=== PATIENT | male | born 1945 | race Hispanic/Latino ===

== ENCOUNTER 2016-05-25 16:34 | Outpatient (CLI) | payer MEDICARE ==
[2016-05-25] MEDS ORDERED: NACL ONE (17:11)
--- NOTE | 2016-05-25 19:55 | Cat Scan Report ---
FINAL REPORT PROCEDURE: CT CHEST W CON TECHNIQUE: Computerized axial tomography of the chest was performed without contrast material. This study is performed without intravenous contrast and the sensitivity for pathology, including neoplasms, adenopathy, abscess, pulmonary embolism and aortic dissection, is reduced. HISTORY: ABNORMAL CHEST XRAY COMPARISON: CT chest 05/19/2012 TECHNICAL QUALITY: Satisfactory. FINDINGS: Heart and pericardium: No pericardial effusion or thickening. Thoracic aorta: Normal. Pulmonary vasculature: Normal. Lymph nodes: No enlarged thoracic lymph nodes. Lungs: Normal. Pleural space: No effusion, thickening, or pneumothorax. Musculoskeletal structures: Multilevel thoracic spine degenerative disc changes. Upper abdominal structures: There is irregular contour of the spleen, which is not fully imaged. The upper imaged portions of the spleen however appear similar to that seen on the prior study. IMPRESSION: No pulmonary infiltrate or focal lesion is seen..
== END 2016-05-25 16:35 | disposition home or self-care (01) ==
LOC: CT 16:34
PROVIDERS: ATTEND Internal Medicine
DX: M47.894 Other spondylosis, thoracic region (principal)
CPT/HCPCS: 71260; Q9967

== ENCOUNTER 2016-12-24 18:11 | Emergency (ER) | payer MEDICARE ==
[2016-12-24 19:25] LABS: Basophils % (Auto) 0.5 % (0.0-1.8); Hematocrit 39.7 % (35.5-45.6); Hemoglobin 13.7 gm/dl (11.8-15.2); Mean Corpuscular HGB Conc 35 % (32-34); Mean Corpuscular Hemoglobin 31 pg (28-32); Mean Corpuscular Volume 89 fl (84-94); Platelet Count 195 K/mm3 (140-440); Red Blood Count 4.47 M/mm3 (3.65-5.03); Red Cell Distribution Width 13.1 % (13.2-15.2); White Blood Count 8.9 K/mm3 (4.5-11.0)
[2016-12-24 19:48] LABS: Alanine Aminotransferase 13 units/L (7-56); Albumin 3.9 g/dL (3.9-5); Albumin/Globulin Ratio 1.4 %; Alkaline Phosphatase 118 units/L (35-129); Anion Gap 16 mmol/L; BUN/Creatinine Ratio 28.75; Blood Urea Nitrogen 23 mg/dL (9-20); Calcium 9.3 mg/dL (8.4-10.2); Carbon Dioxide 25 mmol/L (22-30); Chloride 106.7 mmol/L (98-107); Glucose 106 mg/dL (75-100); Potassium 4.1 mmol/L (3.6-5.0); Sodium 144 mmol/L (137-145); Total Protein 6.7 g/dL (6.3-8.2)
[2016-12-24 20:13] LABS: Bacteria,Urine 1+ /HPF (Negative); Bilirubin,Urine NEG (Negative); Blood,Urine LG (Negative); Ketones,Urine NEG (Negative); Leukocyte Esterase,Urine LG (Negative); Mucus,Urine FEW /HPF; Nitrite,Urine NEG (Negative); Urobilinogen,Urine < 2.0 mg/dL (<2.0)
[2016-12-24 20:14] LABS: RBC,Urine > 182.0 /HPF (0.0-6.0)
[2016-12-24] MEDS ORDERED: ROCEPHIN/NS 2 GM/100 ML 2 GM/100 ML BAG IV SCH (21:00)
--- NOTE | 2016-12-24 21:12 | Emergency Department Report ---
HPI - General Chief Complaint: Abdominal Pain Time Seen by Provider: 12/24/16 20:30 - HPI HPI: Patient has a Stevens and has been noticing changes of his urine color, noticed urine has been darker than usual, has a strong smell, and he is having penile pain, at insertion site of stevens. patient denies any fever, chills, night sweats. ED Past Medical Hx - Past Medical History Hx Hypertension: Yes - Surgical History Additional Surgical History: Prostate biopsy - Social History Smoking Status: Smoker, Current Status Unknown - Medications Home Medications: Home Medications Medication Instructions Recorded Confirmed Last Taken Type Nitrofurantoin Smith/M-Cryst 100 mg PO Q12HR #20 capsule 12/24/16 Unknown Rx [Macrobid CAP] Nystatin Cream [Mycostatin Cream] 1 applic TP BID #1 tube 12/24/16 Unknown Rx ED Review of Systems ROS: Stated complaint: ABD PAIN Other details as noted in HPI Comment: All other systems reviewed and negative Constitutional: no symptoms reported Genitourinary: urgency, dysuria, frequency Physical Exam - Physical Exam Vital Signs: Vital Signs 12/24/16 12/24/16 18:27 20:16 Temperature 98.3 F 98.3 F Pulse Rate 85 81 Respiratory 16 Rate Blood Pressure 161/76 164/76 O2 Sat by Pulse 98 99 Oximetry Physical Exam: Physical Exam: - General Limitations: No Limitations General appearance: alert, in no apparent distress, obese - Head Head exam: Present: atraumatic, normocephalic - Eye Eye exam: Present: normal appearance - ENT ENT exam: Present: mucous membranes moist - Neck Neck exam: Present: normal inspection - Respiratory Respiratory exam: Present: normal lung sounds bilaterally. Absent: respiratory distress - Cardiovascular Cardiovascular Exam: Present: normal rhythm, tachycardia. Absent: systolic murmur, diastolic murmur, rubs, gallop : Penile redness worse at the tip - GI/Abdominal GI/Abdominal exam: Present: soft, normal bowel sounds - Extremities Exam Extremities exam: Present: normal inspection - Back Exam Back exam: Present: normal inspection - Neurological Exam Neurological exam: Present: alert, oriented X3 - Psychiatric Psychiatric exam: normal affect and mood - Skin Skin exam: Present: warm, dry, intact, normal color. Absent: rash ED Course Vital Signs 12/24/16 12/24/16 18:27 20:16 Temperature 98.3 F 98.3 F Pulse Rate 85 81 Respiratory 16 Rate Blood Pressure 161/76 164/76 O2 Sat by Pulse 98 99 Oximetry ED Medical Decision Making - Lab Data Result diagrams: 12/24/16 19:15 12/24/16 19:13 Critical care attestation.: If time is entered above; I have spent that time in minutes in the direct care of this critically ill patient, excluding procedure time. ED Disposition Clinical Impression: Belinda infection UTI (urinary tract infection) Qualifiers: Urinary tract infection type: acute cystitis Hematuria presence: with hematuria Qualified Code(s): N30.01 - Acute cystitis with hematuria Disposition: - TO HOME OR SELFCARE Is pt being admited?: No Does the pt Need Aspirin: No Condition: Stable Instructions: Urinary Tract Infection in Men (ED), Stevens Catheter Placement and Care (ED) Prescriptions: Nitrofurantoin Smith/M-Cryst [Macrobid CAP] 100 mg PO Q12HR #20 capsule Nystatin Cream [Mycostatin Cream] 1 applic TP BID #1 tube Referrals: PRIMARY CARE, [Primary Care Provider] - 3-5 Days
[2016-12-24 21:51] VITALS: BP 173/84
== END 2016-12-24 21:55 | disposition home or self-care (01) ==
LOC: ED 18:11
DX: N30.01 Acute cystitis with hematuria (principal); I10 Essential (primary) hypertension
CPT/HCPCS: 36415; 80053; 81001; 85025; 96365; 99284; J0696

== ENCOUNTER 2017-09-27 11:07 | Day surgery (SDC) | payer MEDICARE ==
[2017-09-27 12:08] LABS: Basophils # (Auto) 0.1 K/mm3 (0.0-0.1); Basophils % (Auto) 0.7 % (0.0-1.8); Eosinophils % (Auto) 9.4 % (0.0-4.3); Hemoglobin 13.3 gm/dl (11.8-15.2); Lymphocytes # (Auto) 1.8 K/mm3 (1.2-5.4); Lymphocytes % (Auto) 16.6 % (13.4-35.0); Mean Corpuscular HGB Conc 33 % (32-34); Mean Corpuscular Hemoglobin 29 pg (28-32); Mean Corpuscular Volume 86 fl (84-94); Monocytes # (Auto) 0.8 K/mm3 (0.0-0.8); Monocytes % (Auto) 7.6 % (0.0-7.3); Platelet Count 291 K/mm3 (140-440); Red Blood Count 4.64 M/mm3 (3.65-5.03); Red Cell Distribution Width 14.1 % (13.2-15.2)
[2017-09-27 12:19] LABS: INR 0.95 (0.87-1.13)
[2017-09-27 12:20] LABS: Partial Thromboplastin Time 30.8 Sec. (24.2-36.6)
--- NOTE | 2017-09-27 14:42 | Ultrasound Report ---
ULTRASOUND THORACENTESIS History: Left pleural effusion. Description of procedure: Informed consent was obtained. Sterile technique was utilized. 1% lidocaine for skin anesthesia. Using ultrasound guidance, a 5 Maltese centesis needle was advanced into the left pleural fluid collection. There was spontaneous return of bloody fluid. 600 cc of fluid was aspirated. 120 cc of fluid was sent to lab for analysis. Impression: Successful ultrasound-guided left thoracentesis. 600 cc of bloody fluid was aspirated.
--- NOTE | 2017-09-27 15:06 | Short Stay Summary ---
Short Stay Documentation Date of service: 09/27/17 - History Principal diagnosis: left pleural effusion H&P: obtained from office - Allergies and Medications Current Medications: Allergies No Known Allergies Allergy (Unverified 06/13/17 14:48) Home Medications Medication Instructions Recorded Confirmed Last Taken Type Aspirin [Aspirin BABY CHEW TAB] 81 mg PO QDAY 06/13/17 09/27/17 09/25/17 History Atorvastatin Calcium 20 mg PO DAILY 09/27/17 09/27/17 09/26/17 History amLODIPine [Norvasc] 5 mg PO DAILY 09/27/17 09/27/17 09/26/17 History clonazePAM 0.5 mg PO QHS PRN 09/27/17 09/27/17 09/26/17 History traMADol [Ultram] 50 mg PO Q6HR PRN 09/27/17 09/27/17 09/26/17 History - Physical exam General appearance: no acute distress Lungs: Other (descreased sounds on left side) - Brief post op/procedure progress note Date of procedure: 09/27/17 Pre-op diagnosis: left pleural effusion Post-op diagnosis: other (left hemothorax) Procedure: US thoracentesis Anesthesia: local Surgeon: EDGAR LIVINGSTON Estimated blood loss: none Pathology: list (120cc) Specimen disposition: to lab Condition: stable - Disposition Condition at discharge: Good Disposition: DC-01 TO HOME OR SELFCARE Short Stay Discharge Plan Follow up with: REBECCA REESE MD [Primary Care Provider] - 7 Days
[2017-09-27 16:23] VITALS: BP 156/64
--- NOTE | 2017-09-27 16:58 | XRay Report ---
FINAL REPORT EXAM: XR CHEST 1V AP COMPARISON: Chest radiograph performed on 06/13/2017 TECHNIQUE: Single frontal view of the chest FINDINGS: The cardiomediastinal silhouette is normal in appearance. There is mild blunting of the left costophrenic angle, which is new since the previous study. The remainder of the lungs are clear. No pneumothorax. No acute bony or soft tissue abnormality. IMPRESSION: Mild blunting of the left costophrenic angle, that likely represents a small pleural effusion. No pneumothorax. HISTORY: post thoracentesis
[2017-09-27 17:15] LABS: Total Cells Counted 100 /mm3
[2017-09-30 07:16] LABS: Amylase,Body Fluid 36; LDH,Body Fluid 1303; Total Protein,Body Fluid 4.9 (15.0-45.0)
== END 2017-09-27 17:15 | disposition home or self-care (01) ==
LOC: CATHLABREC 11:07 → EDSTATUS 12:00 → CATHLABREC 17:15
PROVIDERS: ATTEND Internal Medicine
DX: J90 Pleural effusion, not elsewhere classified (principal); J94.2 Hemothorax; I10 Essential (primary) hypertension; Z79.82 Long term (current) use of aspirin; Z79.899 Other long term (current) drug therapy; Z79.01 Long term (current) use of anticoagulants
CPT/HCPCS: 32555; 36415; 71045; 82150; 82947; 83605; 84160; 85025; 85610; 85730; 87102; 87116; 88112; 88305; 89051

== ENCOUNTER 2017-12-25 11:20 | Emergency (ER) | payer MEDICARE ==
[2017-12-25 11:28] VITALS: BP 177/92
[2017-12-25] MEDS ORDERED: DECADRON IM ONE (13:46)
[2017-12-25] MEDS ORDERED: ATROVENT IH ONE (13:46)
[2017-12-25] MEDS ORDERED: PROVENTIL IH ONE (13:46)
--- NOTE | 2017-12-25 13:46 | Emergency Department Report ---
<KATI NEWBY - Last Filed: 12/25/17 13:46> - General Chief Complaint: Upper Respiratory Infection Stated Complaint: COLD SYMPTONS Time Seen by Provider: 12/25/17 13:29 Source: patient, family Mode of arrival: Ambulatory Limitations: No Limitations - Related Data Home Medications Medication Instructions Recorded Confirmed Last Taken Aspirin [Aspirin BABY CHEW TAB] 81 mg PO QDAY 06/13/17 09/27/17 09/25/17 Atorvastatin Calcium 20 mg PO DAILY 09/27/17 09/27/17 09/26/17 amLODIPine [Norvasc] 5 mg PO DAILY 09/27/17 09/27/17 09/26/17 clonazePAM 0.5 mg PO QHS PRN 09/27/17 09/27/17 09/26/17 traMADol [Ultram] 50 mg PO Q6HR PRN 09/27/17 09/27/17 09/26/17 Previous Rx's Medication Instructions Recorded Last Taken Type ALBUTEROL Inhaler (OR & NICU) 2 puff IH QID PRN #1 inhalation 12/25/17 Unknown Rx [ProAir HFA Inhaler] Azithromycin [Zithromax] 250 mg PO DAILY #6 tablet 12/25/17 Unknown Rx predniSONE [Deltasone] 20 mg PO QDAY #5 tab 12/25/17 Unknown Rx Allergies Allergy/AdvReac Type Severity Reaction Status Date / Time No Known Allergies Allergy Verified 12/25/17 11:24 ED Review of Systems ROS: Stated complaint: COLD SYMPTONS Other details as noted in HPI ED Past Medical Hx - Past Medical History Hx Hypertension: Yes Hx CVA: Yes Hx Congestive Heart Failure: No Hx Diabetes: No Hx GERD: Yes Hx Arthritis: Yes Hx Asthma: No Hx COPD: No Hx Dementia: Yes Hx HIV: No Additional medical history: high cholesterol - Surgical History Hx Cholecystectomy: Yes Additional Surgical History: Prostate biopsy - Social History Smoking Status: Never Smoker Substance Use Type: None - Medications Home Medications: Home Medications Medication Instructions Recorded Confirmed Last Taken Type Aspirin [Aspirin BABY CHEW TAB] 81 mg PO QDAY 06/13/17 09/27/17 09/25/17 History Atorvastatin Calcium 20 mg PO DAILY 09/27/17 09/27/17 09/26/17 History amLODIPine [Norvasc] 5 mg PO DAILY 09/27/17 09/27/17 09/26/17 History clonazePAM 0.5 mg PO QHS PRN 09/27/17 09/27/17 09/26/17 History traMADol [Ultram] 50 mg PO Q6HR PRN 09/27/17 09/27/17 09/26/17 History ALBUTEROL Inhaler (OR & NICU) 2 puff IH QID PRN #1 inhalation 12/25/17 Unknown Rx [ProAir HFA Inhaler] Azithromycin [Zithromax] 250 mg PO DAILY #6 tablet 12/25/17 Unknown Rx predniSONE [Deltasone] 20 mg PO QDAY #5 tab 12/25/17 Unknown Rx ED Physical Exam - General Limitations: No Limitations ED Course Vital Signs 12/25/17 11:25 Temperature 99.1 F Pulse Rate 101 H Respiratory 20 Rate Blood Pressure 177/92 O2 Sat by Pulse 96 Oximetry Critical care attestation.: If time is entered above; I have spent that time in minutes in the direct care of this critically ill patient, excluding procedure time. ED Disposition Clinical Impression: Acute bronchitis Qualifiers: Bronchitis organism: unspecified organism Qualified Code(s): J20.9 - Acute bronchitis, unspecified Disposition: DC- TO HOME OR SELFCARE Condition: Stable Instructions: Acute Bronchitis (ED) Referrals: PRIMARY CARE, [Primary Care Provider] - 3-5 Days <FRED BURTON - Last Filed: 12/25/17 15:05> - History of Present Illness Initial Comments: Patient is 72-year-old male who is presenting with cough cold congestion for approximately week. Cough is dry. Family members state that he had pneumonia last unit where he may have pneumonia. Patient's had no fevers chills nausea vomiting diarrhea. Severity scale (0 -10): 5 Worsens With: nothing ED Review of Systems Comment: All other systems reviewed and negative ED Physical Exam - General General appearance: alert, in no apparent distress - Head Head exam: Present: atraumatic, normocephalic - Eye Eye exam: Present: normal appearance - ENT ENT exam: Present: mucous membranes moist - Neck Neck exam: Present: normal inspection - Respiratory Respiratory exam: Present: normal lung sounds bilaterally. Absent: respiratory distress, wheezes, rales, rhonchi - Cardiovascular Cardiovascular Exam: Present: regular rate, normal rhythm. Absent: systolic murmur, diastolic murmur, rubs, gallop - GI/Abdominal GI/Abdominal exam: Present: soft, normal bowel sounds - Rectal Rectal exam: Present: deferred - Extremities Exam Extremities exam: Present: normal inspection - Back Exam Back exam: Present: normal inspection - Neurological Exam Neurological exam: Present: alert, oriented X3 - Psychiatric Psychiatric exam: Present: normal affect, normal mood - Skin Skin exam: Present: warm, dry, intact, normal color. Absent: rash ED Medical Decision Making - Radiology Data Chest x-ray shows no acute process - Medical Decision Making She'll be started on antibiotics and meds for symptomatic relief will be discharged home. ED Disposition Is pt being admited?: No Does the pt Need Aspirin: No Time of Disposition: 15:05
--- NOTE | 2017-12-25 13:47 | Emergency Department Report ---
Blank Doc - Documentation Documentation: Patient is 72-year-old male who is presenting with cortical congestion for 24 hours. Patient's states that he had pneumonia last year she was concerned he may have pneumonia again. Patient has some mild shortness of breath. Cough is dry and nonproductive. Patient denies any fevers chills nausea vomiting this time. On focused physical exam patient has clear lungs with does have a wet cough. Chest x-ray revealing the patient be reassessed
--- NOTE | 2017-12-25 14:29 | XRay Report ---
FINAL REPORT EXAM: XR CHEST ROUTINE 2V HISTORY: cough COMPARISON: Chest radiograph performed on 09/27/2017 TECHNIQUE: Frontal and lateral views of the chest. FINDINGS: The cardiomediastinal silhouette is normal in appearance. The lungs are clear without focal consolidation. There is no pleural effusion or pneumothorax. There is no acute soft tissue or osseous abnormality. IMPRESSION: No acute cardiopulmonary disease.
== END 2017-12-25 15:40 | disposition home or self-care (01) ==
LOC: ED 11:20
DX: J20.9 Acute bronchitis, unspecified (principal); Z79.82 Long term (current) use of aspirin; I10 Essential (primary) hypertension; K21.9 Gastro-esophageal reflux disease without esophagitis; M19.90 Unspecified osteoarthritis, unspecified site; E78.00 Pure hypercholesterolemia, unspecified; Z90.49 Acquired absence of other specified parts of digestive tract
CPT/HCPCS: 71046; 94640; 96372; 99284; J1100

== ENCOUNTER 2018-04-30 19:02 | Inpatient (IN) | payer MEDICARE ==
[2018-04-30] MEDS ORDERED: CATAPRES PO ONE (20:30)
[2018-04-30] MEDS ORDERED: CATAPRES ONE (20:33)
[2018-04-30 20:43] LABS: Basophils # (Auto) 0.1 K/mm3 (0.0-0.1); Eosinophils # (Auto) 0.1 K/mm3 (0.0-0.4); Eosinophils % (Auto) 0.8 % (0.0-4.3); Hematocrit 44.1 % (35.5-45.6); Hemoglobin 15.2 gm/dl (11.8-15.2); Lymphocytes # (Auto) 0.6 K/mm3 (1.2-5.4); Lymphocytes % (Auto) 4.1 % (13.4-35.0); Mean Corpuscular HGB Conc 35 % (32-34); Mean Corpuscular Volume 89 fl (84-94); Monocytes # (Auto) 1.1 K/mm3 (0.0-0.8); Monocytes % (Auto) 7.9 % (0.0-7.3); Platelet Count 206 K/mm3 (140-440); Red Blood Count 4.98 M/mm3 (3.65-5.03); Red Cell Distribution Width 13.7 % (13.2-15.2)
[2018-04-30 20:54] LABS: BUN/Creatinine Ratio 16; Blood Urea Nitrogen 14 mg/dL (9-20); Calcium 9.3 mg/dL (8.4-10.2); Hemolysis Index 4
--- NOTE | 2018-04-30 21:12 | XRay Report ---
FINAL REPORT PROCEDURE: XR CHEST ROUTINE 2V TECHNIQUE: PA and lateral chest radiographs were obtained. CPT 62551 HISTORY: Shortness of breath COMPARISON: 12/25/2017 FINDINGS: Patient is rotated to the left Heart: Mild cardiomegaly is noted. Mediastinum/Vessels: Normal. Lungs/Pleural space: Normal. Bony thorax: No acute osseous abnormality. Other: IMPRESSION: Mild cardiomegaly No acute pulmonary process.
[2018-04-30] MEDS ORDERED: ATROVENT IH ONE (21:32)
[2018-04-30] MEDS ORDERED: SOLU-Medrol IV ONE (21:32)
[2018-04-30] MEDS ORDERED: PROVENTIL IH ONE (21:32)
[2018-04-30] MEDS ORDERED: TESSALON PERLES PO ONE (21:32)
[2018-04-30] MEDS ORDERED: MAGNESIUM SULFATE 2GM/50ML 2 GM/50 ML BAG IV ONE (21:40)
--- NOTE | 2018-05-01 00:02 | Emergency Department Report ---
- General Chief Complaint: Upper Respiratory Infection Stated Complaint: FLU SYMPTOMS Time Seen by Provider: 04/30/18 21:20 Source: patient, family Mode of arrival: Ambulatory Limitations: Altered Mental Status, Physical Limitation - History of Present Illness Initial Comments: 72-year-old male with a past medical history of CVA without deficits, dementia, GERD, hypertension, and elevated cholesterol presents to the hospital with continued cough and shortness of breath since diagnosis infection 4 weeks ago. He was seen by his PMD 3 weeks ago was treated with Z-Wallace. Patient initially felt better after abx buit symptoms worsened again. Patient continues to have a cough that seems to be worse at night. He is also having continued intermittent wheezing with shortness of breath on exertion. Minimal relief with his albuterol inhaler. His niece takes care of him suspects that he has had a fever because he feels warm but there is no documented elevated temperature. Patient complains of pain to his ribs secondary to coughing. Patient did receive his flu shot. PMD: Dr. Guallpa - Related Data Home Medications Medication Instructions Recorded Confirmed Last Taken Aspirin [Aspirin BABY CHEW TAB] 81 mg PO QDAY 06/13/17 09/27/17 09/25/17 Atorvastatin Calcium 20 mg PO DAILY 09/27/17 09/27/17 09/26/17 amLODIPine [Norvasc] 5 mg PO DAILY 09/27/17 09/27/17 09/26/17 clonazePAM 0.5 mg PO QHS PRN 09/27/17 09/27/17 09/26/17 traMADol [Ultram] 50 mg PO Q6HR PRN 09/27/17 09/27/17 09/26/17 Previous Rx's Medication Instructions Recorded Last Taken Type ALBUTEROL Inhaler (OR & NICU) 2 puff IH QID PRN #1 inhalation 12/25/17 Unknown Rx [ProAir HFA Inhaler] Azithromycin [Zithromax] 250 mg PO DAILY #6 tablet 12/25/17 Unknown Rx predniSONE [Deltasone] 20 mg PO QDAY #5 tab 12/25/17 Unknown Rx Allergies Allergy/AdvReac Type Severity Reaction Status Date / Time No Known Allergies Allergy Verified 12/25/17 11:24 ED Review of Systems ROS: Stated complaint: FLU SYMPTOMS Other details as noted in HPI Comment: All other systems reviewed and negative ED Past Medical Hx - Past Medical History Hx Hypertension: Yes Hx CVA: Yes (2008 no deficits) Hx Congestive Heart Failure: No Hx Diabetes: No Hx GERD: Yes Hx Arthritis: Yes Hx Asthma: No Hx COPD: No Hx Dementia: Yes Hx HIV: No Additional medical history: high cholesterol - Surgical History Past Surgical History?: Yes Hx Cholecystectomy: Yes Additional Surgical History: Prostate biopsy - Social History Smoking Status: Former Smoker - Medications Home Medications: Home Medications Medication Instructions Recorded Confirmed Last Taken Type Aspirin [Aspirin BABY CHEW TAB] 81 mg PO QDAY 06/13/17 09/27/17 09/25/17 History Atorvastatin Calcium 20 mg PO DAILY 09/27/17 09/27/17 09/26/17 History amLODIPine [Norvasc] 5 mg PO DAILY 09/27/17 09/27/17 09/26/17 History clonazePAM 0.5 mg PO QHS PRN 09/27/17 09/27/17 09/26/17 History traMADol [Ultram] 50 mg PO Q6HR PRN 09/27/17 09/27/17 09/26/17 History ALBUTEROL Inhaler (OR & NICU) 2 puff IH QID PRN #1 inhalation 12/25/17 Unknown Rx [ProAir HFA Inhaler] Azithromycin [Zithromax] 250 mg PO DAILY #6 tablet 12/25/17 Unknown Rx predniSONE [Deltasone] 20 mg PO QDAY #5 tab 12/25/17 Unknown Rx ED Physical Exam - General Limitations: Altered Mental Status, Physical Limitation - Other Other exam information: General: No limitations, patient is alert in no acute distress Head exam: Atraumatic, normocephalic Eyes exam: Normal appearance ENT: Moist mucous membrane, normal oropharynx Neck exam: Normal inspection, full range of motion, no meningismus nontender Respiratory exam: Positive wheezing without accessory muscle use Cardiovascular: Mild tachycardia regular rhythm Abdomen: Soft, nondistended, and nontender, with normal bowel sounds, no rebound, or guarding Extremity: Full range of motion normal inspection no deformity Back: Normal Inspection, full range of motion, no tenderness Neurologic: Alert, oriented to self and place but not to year, cranial nerves intact, no motor or sensory deficit Psychiatric: normal affect, normal mood Skin: Warm, dry, intact ED Course Vital Signs 04/30/18 04/30/18 04/30/18 20:03 20:11 20:33 Temperature 99.4 F 99.4 F Pulse Rate 110 H 110 H 110 H Pulse Rate [ Anterior Bilateral Throughout] Respiratory 20 Rate Respiratory Rate [Anterior Bilateral Throughout] Blood Pressure 207/106 207/106 Blood Pressure 207/106 [Right] O2 Sat by Pulse 94 94 Oximetry 04/30/18 04/30/18 04/30/18 21:54 21:58 22:00 Temperature Pulse Rate 95 H 103 H Pulse Rate [ 95 H Anterior Bilateral Throughout] Respiratory 24 25 H Rate Respiratory 18 Rate [Anterior Bilateral Throughout] Blood Pressure 124/70 109/70 Blood Pressure [Right] O2 Sat by Pulse 95 96 Oximetry 04/30/18 04/30/18 04/30/18 22:30 23:00 23:15 Temperature Pulse Rate 103 H 107 H Pulse Rate [ 93 H Anterior Bilateral Throughout] Respiratory 25 H 24 Rate Respiratory 18 Rate [Anterior Bilateral Throughout] Blood Pressure 111/72 129/60 Blood Pressure [Right] O2 Sat by Pulse 94 94 Oximetry 04/30/18 23:30 Temperature Pulse Rate 111 H Pulse Rate [ Anterior Bilateral Throughout] Respiratory 19 Rate Respiratory Rate [Anterior Bilateral Throughout] Blood Pressure 119/66 Blood Pressure [Right] O2 Sat by Pulse 94 Oximetry ED Medical Decision Making - Lab Data Result diagrams: 04/30/18 20:32 04/30/18 20:32 Lab Results 04/30/18 04/30/18 Range/Units 20:32 20:32 WBC 13.5 H (4.5-11.0) K/mm3 RBC 4.98 (3.65-5.03) M/mm3 Hgb 15.2 (11.8-15.2) gm/dl Hct 44.1 (35.5-45.6) % MCV 89 (84-94) fl MCH 31 (28-32) pg MCHC 35 H (32-34) % RDW 13.7 (13.2-15.2) % Plt Count 206 (140-440) K/mm3 Lymph % (Auto) 4.1 L (13.4-35.0) % Stafford % (Auto) 7.9 H (0.0-7.3) % Eos % (Auto) 0.8 (0.0-4.3) % Baso % (Auto) 1.0 (0.0-1.8) % Lymph # 0.6 L (1.2-5.4) K/mm3 Stafford # 1.1 H (0.0-0.8) K/mm3 Eos # 0.1 (0.0-0.4) K/mm3 Baso # 0.1 (0.0-0.1) K/mm3 Seg Neutrophils % 86.2 H (40.0-70.0) % Seg Neutrophils # 11.7 H (1.8-7.7) K/mm3 Sodium 136 L (137-145) mmol/L Potassium 4.1 (3.6-5.0) mmol/L Chloride 99.0 (98-107) mmol/L Carbon Dioxide 24 (22-30) mmol/L Anion Gap 17 mmol/L BUN 14 (9-20) mg/dL Creatinine 0.9 (0.8-1.5) mg/dL Estimated GFR > 60 ml/min BUN/Creatinine Ratio 16 % Glucose 115 H (75-100) mg/dL Calcium 9.3 (8.4-10.2) mg/dL - EKG Data -: EKG Interpreted by [facility] EKG shows normal: sinus rhythm, axis (qrs 15), QRS complexes (qrsd 123), ST-T waves (no stemui, lat st depression ) Rate: normal (99) - EKG Data When compared to previous EKG there are: no significant change (compared to 05/2017) - Radiology Data Radiology results: report reviewed FINAL REPORT PROCEDURE: XR CHEST ROUTINE 2V TECHNIQUE: PA and lateral chest radiographs were obtained. CPT 12085 HISTORY: Shortness of breath COMPARISON: 12/25/2017 FINDINGS: Patient is rotated to the left Heart: Mild cardiomegaly is noted. Mediastinum/Vessels: Normal. Lungs/Pleural space: Normal. Bony thorax: No acute osseous abnormality. Other: IMPRESSION: Mild cardiomegaly No acute pulmonary process. - Medical Decision Making Patient treated in the ED with continuous albuterol 10 mg, Atrovent 1 mg, 2 g of magnesium, and Solu-Medrol 125 mg with minimal improvement in his wheezing. Patient will be admitted to hospitalist service for further treatment. Elevated blood pressure improved after receiving clonidine 0 point - Differential Diagnosis pneumonia, COPD, hypertensive emergency, CHF Critical Care Time: No Critical care attestation.: If time is entered above; I have spent that time in minutes in the direct care of this critically ill patient, excluding procedure time. ED Disposition Clinical Impression: Acute bronchitis, Wheezing Disposition: OP ADMIT IP TO THIS HOSP Is pt being admited?: Yes Condition: Stable Time of Disposition: 00:01 (Dr Boyd/hosp)
[2018-05-01] MEDS ORDERED: SODIUM CHLORIDE FLUSH SYRINGE 10 ML IV PRN (00:13)
--- NOTE | 2018-05-01 00:17 | History and Physical Report ---
History of Present Illness Date of examination: 05/01/18 History of present illness: [age]-year-old man with a history of hypertension, hyperlipidemia, dementia, GERD, CVA was brought to the emergency room by family for evaluation for shortness of breath. He was diagnosed with bronchitis 4 weeks ago, treated with a Z-Wallace his symptoms improved temporarily. He continued to have shortness of breath, cough, no fever or chills Review of systems Constitutional: no weight loss, chills, fever Ears, eyes, nose, mouth and throat: no nasal congestion, no nasal discharge, no sinus pressure, no vision change, no red eye. Neck: No neck pain or rigidity. Cardiovascular: no palpitations, chest pain Respiratory: + cough, shortness of breath Gastrointestinal: no hematochezia, abdominal pain Genitourinary : no frequency , no hematuria Musculoskeletal: no joint swelling or muscle ache Integumentary: no rash, no pruritis Neurological: no parathesias, no focal weakness Endocrine: no cold or heat intolerance, no polyuria or polydipsia Hematologic/Lymphatic: no easy bruising, no easy bleeding, no gland swelling Allergic/Immunologic: no urticaria, no angioedema. PAST MEDICAL HISTORY: hypertension, hyperlipidemia, dementia, GERD, CVA PAST SURGICAL HISTORY: Cholecystectomy SOCIAL HISTORY: Denies alcohol, drugs, tobacco FAMILY HISTORY: Hypertension Medications and Allergies Allergies Allergy/AdvReac Type Severity Reaction Status Date / Time No Known Allergies Allergy Verified 12/25/17 11:24 Home Medications Medication Instructions Recorded Confirmed Last Taken Type Aspirin [Aspirin BABY CHEW TAB] 81 mg PO QDAY 06/13/17 09/27/17 09/25/17 History Atorvastatin Calcium 20 mg PO DAILY 09/27/17 09/27/17 09/26/17 History amLODIPine [Norvasc] 5 mg PO DAILY 09/27/17 09/27/17 09/26/17 History clonazePAM 0.5 mg PO QHS PRN 09/27/17 09/27/17 09/26/17 History traMADol [Ultram] 50 mg PO Q6HR PRN 09/27/17 09/27/17 09/26/17 History ALBUTEROL Inhaler (OR & NICU) 2 puff IH QID PRN #1 inhalation 12/25/17 Unknown Rx [ProAir HFA Inhaler] Azithromycin [Zithromax] 250 mg PO DAILY #6 tablet 12/25/17 Unknown Rx predniSONE [Deltasone] 20 mg PO QDAY #5 tab 12/25/17 Unknown Rx Exam - Physical Exam Narrative exam: General Apperance: The patient lying in bed, breathing comfortable HEENT: Normocephalic, atraumatic. Pupils equally round and reactive to light, EOMI, no sclericterus or JVD or thyromegaly or nodule. , no carotid bruit, mucous membranes moist, no exudate or erythema Heart: S1-S2, regular is rhythm Lungs: Coarse breath sounds, diffuse wheezing bilaterally, breathing comfortable Abdomen: Positive bowel sounds, soft, nontender, nondistended, no organomegaly Extremities: No edema cyanosis clubbing Skin: no rash, nodule, warm and dry Neuro: cranial nerves 2-12 intact, speech is fluent, motor/sensory intact - Constitutional Vitals: Temp Pulse Resp BP Pulse Ox 99.4 F 111 H 19 119/66 94 04/30/18 20:11 04/30/18 23:30 04/30/18 23:30 04/30/18 23:30 04/30/18 23:30 Results - Labs CBC & Chem 7: 04/30/18 20:32 04/30/18 20:32 Labs: Abnormal lab results 04/30/18 04/30/18 Range/Units 20:32 20:32 WBC 13.5 H (4.5-11.0) K/mm3 MCHC 35 H (32-34) % Lymph % (Auto) 4.1 L (13.4-35.0) % [place] % (Auto) 7.9 H (0.0-7.3) % Lymph # 0.6 L (1.2-5.4) K/mm3 [place] # 1.1 H (0.0-0.8) K/mm3 Seg Neutrophils % 86.2 H (40.0-70.0) % Seg Neutrophils # 11.7 H (1.8-7.7) K/mm3 Sodium 136 L (137-145) mmol/L Glucose 115 H (75-100) mg/dL - Imaging and Cardiology EKG: image reviewed Chest x-ray: image reviewed Assessment and Plan Assessment Acute bronchitis Hypertension GERD Hyperlipidemia History of CVA Plan Admit medicine Start IV steroids, nebulizer treatments Continue appropriate outpatient medications DVT prophylaxis
[2018-05-01] MEDS: SOLU-Medrol IV SCH ×4 (03:36→21:13)
[2018-05-01] MEDS: DUONEB *Not for PRN Use IH SCH ×4 (05:32→20:17)
[2018-05-01] MEDS: TYLENOL PO PRN (08:58)
[2018-05-01] MEDS: LOVENOX SUB-Q SCH (09:35)
[2018-05-01] MEDS: SODIUM CHLORIDE FLUSH SYRINGE 10 ML IV SCH ×2 (09:35→21:16)
[2018-05-01] MEDS ORDERED: LOVENOX SUB-Q SCH (10:00)
--- NOTE | 2018-05-01 11:06 | Event Note ---
Date: 05/01/18 Patient admitted in AM Doiing well If good improvement probable discharge tomorrow
[2018-05-02] MEDS: ZOFRAN IV PRN ×2 (01:16→17:42)
[2018-05-02] MEDS: DUONEB *Not for PRN Use IH SCH ×4 (02:24→19:42)
[2018-05-02 03:30] LABS: Hematocrit 46.2 % (35.5-45.6); Hemoglobin 15.5 gm/dl (11.8-15.2); Mean Corpuscular HGB Conc 34 % (32-34); Mean Corpuscular Volume 88 fl (84-94); Platelet Count 223 K/mm3 (140-440); Red Blood Count 5.23 M/mm3 (3.65-5.03); Red Cell Distribution Width 14.2 % (13.2-15.2)
[2018-05-02 03:46] LABS: Calcium 9.2 mg/dL (8.4-10.2)
[2018-05-02] MEDS: SOLU-Medrol IV SCH ×3 (04:19→17:34)
[2018-05-02 05:37] LABS: Basophils % (Manual) 0 % (0.0-1.8); Eosinophils % (Manual) 0 % (0.0-4.3); Monocytes % (Manual) 5.5 % (0.0-7.3); Total Cells Counted 200
[2018-05-02 05:38] LABS: Platelet Estimate Consistent w Auto; RBC Morphology Normal
--- NOTE | 2018-05-02 08:06 | Progress Note ---
Assessment and Plan Assessment and plan: [age]-year-old man with a history of hypertension, hyperlipidemia, dementia, GERD, CVA was brought to the emergency room by family for evaluation for shortness of breath. He was diagnosed with bronchitis 4 weeks ago, treated with a Z-Wallace his symptoms improved temporarily. He continued to have shortness of breath, cough, no fever or chills * CXR: Mild cardiomegaly No acute pulmonary process. COPD Exacerbation Acute on Chronic Respiratory failure Leukcoytosis-likely secondary to demarginzation from steroids therapy, patient with no fever to indicate infectious process Acute Bronchitis Tachycardia-Likely secondary to respiratory failure GERD Hyperlipidemia Dementia Plan Continue supportive care Wean oxygen as tolerated Taper Steroids to 60q6h then BID and hopeful discharge in 24-48 hrs AM LABS At [facility] Anticipate discharge in 24-48hrs. DVT and GI prophylaxis History Interval history: Patient is seen today for: Asthma exacerbation Seen and examined at bedside; 24hour events reviewed; nursing staff ; no adverse overnight events reported to me; Denies any chest pain, nausea, vomiting, diarrhea. Patient continues to complain of increased phlegm. He show some mild improvement No fever noted blood pressure controlled Hospitalist Physical - Physical exam Narrative exam: VITAL SIGNS: Reviewed. GENERAL: The patient appeared well nourished and normally developed. Citalopram bedside Vital signs as documented. HEAD: No signs of head trauma. EYES: Pupils are equal. Extraocular motions intact. EARS: Hearing grossly intact. MOUTH: Oropharynx is normal. NECK: No adenopathy, no JVD. CHEST: Chest with diminished breath sounds bilaterally. No wheezes, rales, or rhonchi. CARDIAC: Regular rate and rhythm. S1 and S2, without murmurs, gallops, or rubs. VASCULAR: No Edema. Peripheral pulses normal and equal in all extremities. ABDOMEN: Soft, without detectable tenderness. No sign of distention. No rebound or guarding, and no masses palpated. Bowel Sounds normal. MUSCULOSKELETAL: Good range of motion of all major joints. Extremities without clubbing, cyanosis or edema. NEUROLOGIC EXAM: Alert and oriented x 3. No focal sensory or strength deficits. Speech normal. Follows commands. PSYCHIATRIC: Mood normal. SKIN: No rash or lesions. - Constitutional Vitals: Temp Pulse Resp BP Pulse Ox 97.9 F 114 H 19 150/85 92 05/02/18 07:26 05/02/18 07:56 05/02/18 07:56 05/02/18 07:26 05/02/18 07:56 Results - Labs CBC & Chem 7: 05/02/18 02:24 05/02/18 02:24 Labs: Laboratory Last Values WBC 21.2 K/mm3 (4.5-11.0) H 05/02/18 02:24 RBC 5.23 M/mm3 (3.65-5.03) H 05/02/18 02:24 Hgb 15.5 gm/dl (11.8-15.2) H 05/02/18 02:24 Hct 46.2 % (35.5-45.6) H 05/02/18 02:24 MCV 88 fl (84-94) 05/02/18 02:24 MCH 30 pg (28-32) 05/02/18 02:24 MCHC 34 % (32-34) 05/02/18 02:24 RDW 14.2 % (13.2-15.2) 05/02/18 02:24 Plt Count 223 K/mm3 (140-440) 05/02/18 02:24 Lymph % (Auto) 4.1 % (13.4-35.0) L 04/30/18 20:32 [place] % (Auto) 7.9 % (0.0-7.3) H 04/30/18 20:32 Eos % (Auto) 0.8 % (0.0-4.3) 04/30/18 20:32 Baso % (Auto) 1.0 % (0.0-1.8) 04/30/18 20:32 Lymph # 0.6 K/mm3 (1.2-5.4) L 04/30/18 20:32 [place] # 1.1 K/mm3 (0.0-0.8) H 04/30/18 20:32 Eos # 0.1 K/mm3 (0.0-0.4) 04/30/18 20:32 Baso # 0.1 K/mm3 (0.0-0.1) 04/30/18 20:32 Add Manual Diff Complete 05/02/18 02:24 Total Counted 200 05/02/18 02:24 Seg Neutrophils % Photographic Editor 05/02/18 02:24 Seg Neuts % (Manual) 86.0 % (40.0-70.0) H 05/02/18 02:24 Band Neutrophils % 4.5 % 05/02/18 02:24 Lymphocytes % (Manual) 4.0 % (13.4-35.0) L 05/02/18 02:24 Reactive Lymphs % (Man) 0 % 05/02/18 02:24 Monocytes % (Manual) 5.5 % (0.0-7.3) 05/02/18 02:24 Eosinophils % (Manual) 0 % (0.0-4.3) 05/02/18 02:24 Basophils % (Manual) 0 % (0.0-1.8) 05/02/18 02:24 Metamyelocytes % 0 % 05/02/18 02:24 Myelocytes % 0 % 05/02/18 02:24 Promyelocytes % 0 % 05/02/18 02:24 Blast Cells % 0 % 05/02/18 02:24 Nucleated RBC % Not Reportable 05/02/18 02:24 Seg Neutrophils # 11.7 K/mm3 (1.8-7.7) H 04/30/18 20:32 Seg Neutrophils # Man 18.2 K/mm3 (1.8-7.7) H 05/02/18 02:24 Band Neutrophils # 1.0 K/mm3 05/02/18 02:24 Lymphocytes # (Manual) 0.8 K/mm3 (1.2-5.4) L 05/02/18 02:24 Abs React Lymphs (Man) 0.0 K/mm3 05/02/18 02:24 Monocytes # (Manual) 1.2 K/mm3 (0.0-0.8) H 05/02/18 02:24 Eosinophils # (Manual) 0.0 K/mm3 (0.0-0.4) 05/02/18 02:24 Basophils # (Manual) 0.0 K/mm3 (0.0-0.1) 05/02/18 02:24 Metamyelocytes # 0.0 K/mm3 05/02/18 02:24 Myelocytes # 0.0 K/mm3 05/02/18 02:24 Promyelocytes # 0.0 K/mm3 05/02/18 02:24 Blast Cells # 0.0 K/mm3 05/02/18 02:24 WBC Morphology Not Reportable 05/02/18 02:24 Hypersegmented Neuts Not Reportable 05/02/18 02:24 Hyposegmented Neuts Not Reportable 05/02/18 02:24 Hypogranular Neuts Not Reportable 05/02/18 02:24 Smudge Cells Not Reportable 05/02/18 02:24 Toxic Granulation Not Reportable 05/02/18 02:24 Toxic Vacuolation Not Reportable 05/02/18 02:24 Dohle Bodies Not Reportable 05/02/18 02:24 Pelger-Huet Anomaly Not Reportable 05/02/18 02:24 Bang Rods Not Reportable 05/02/18 02:24 Platelet Estimate Consistent w auto 05/02/18 02:24 Clumped Platelets Not Reportable 05/02/18 02:24 Plt Clumps, EDTA Not Reportable 05/02/18 02:24 Large Platelets Not Reportable 05/02/18 02:24 Giant Platelets Not Reportable 05/02/18 02:24 Platelet Satelliting Not Reportable 05/02/18 02:24 Plt Morphology Comment Not Reportable 05/02/18 02:24 RBC Morphology Normal 05/02/18 02:24 Dimorphic RBCs Not Reportable 05/02/18 02:24 Polychromasia Not Reportable 05/02/18 02:24 Hypochromasia Not Reportable 05/02/18 02:24 Poikilocytosis Not Reportable 05/02/18 02:24 Anisocytosis Not Reportable 05/02/18 02:24 Microcytosis Not Reportable 05/02/18 02:24 Macrocytosis Not Reportable 05/02/18 02:24 Spherocytes Not Reportable 05/02/18 02:24 Pappenheimer Bodies Not Reportable 05/02/18 02:24 Sickle Cells Not Reportable 05/02/18 02:24 Target Cells Not Reportable 05/02/18 02:24 Tear Drop Cells Not Reportable 05/02/18 02:24 Ovalocytes Not Reportable 05/02/18 02:24 Helmet Cells Not Reportable 05/02/18 02:24 Jason-Appleby Bodies Not Reportable 05/02/18 02:24 [place] Rings Not Reportable 05/02/18 02:24 Kristine Cells Not Reportable 05/02/18 02:24 Bite Cells Not Reportable 05/02/18 02:24 Crenated Cell Not Reportable 05/02/18 02:24 Elliptocytes Not Reportable 05/02/18 02:24 Acanthocytes (Spur) Not Reportable 05/02/18 02:24 Rouleaux Not Reportable 05/02/18 02:24 Hemoglobin C Crystals Not Reportable 05/02/18 02:24 Schistocytes Not Reportable 05/02/18 02:24 Malaria parasites Not Reportable 05/02/18 02:24 Kenneth Bodies Not Reportable 05/02/18 02:24 Hem Pathologist Commnt No 05/02/18 02:24 Sodium 139 mmol/L (137-145) 05/02/18 02:24 Potassium 3.9 mmol/L (3.6-5.0) 05/02/18 02:24 Chloride 100.2 mmol/L (98-107) 05/02/18 02:24 Carbon Dioxide 24 mmol/L (22-30) 05/02/18 02:24 Anion Gap 19 mmol/L 05/02/18 02:24 BUN 28 mg/dL (9-20) H 05/02/18 02:24 Creatinine 1.2 mg/dL (0.8-1.5) 05/02/18 02:24 Estimated GFR 60 ml/min 05/02/18 02:24 BUN/Creatinine Ratio 23 % 05/02/18 02:24 Glucose 171 mg/dL (75-100) H 05/02/18 02:24 Calcium 9.2 mg/dL (8.4-10.2) 05/02/18 02:24
[2018-05-02] MEDS: TYLENOL PO PRN ×2 (09:40→17:37)
[2018-05-02] MEDS: LOVENOX SUB-Q SCH (09:43)
[2018-05-02] MEDS: NORVASC PO SCH (09:43)
[2018-05-02] MEDS: SODIUM CHLORIDE FLUSH SYRINGE 10 ML IV SCH (17:34)
[2018-05-03] MEDS: DUONEB *Not for PRN Use IH SCH ×4 (02:20→19:49)
[2018-05-03 05:25] LABS: Hemoglobin 15.1 gm/dl (11.8-15.2); Mean Corpuscular HGB Conc 34 % (32-34); Mean Corpuscular Volume 90 fl (84-94); Platelet Count 246 K/mm3 (140-440); Red Blood Count 5.04 M/mm3 (3.65-5.03); Red Cell Distribution Width 14.2 % (13.2-15.2)
[2018-05-03 05:53] LABS: Calcium 9.3 mg/dL (8.4-10.2)
--- NOTE | 2018-05-03 08:47 | Progress Note ---
Assessment and Plan Assessment and plan: [age]-year-old man with a history of hypertension, hyperlipidemia, dementia, GERD, CVA was brought to the emergency room by family for evaluation for shortness of breath. He was diagnosed with bronchitis 4 weeks ago, treated with a Z-Wallace his symptoms improved temporarily. He continued to have shortness of breath, cough, no fever or chills * CXR: Mild cardiomegaly No acute pulmonary process. COPD Exacerbation Acute on Chronic Respiratory failure Leukcoytosis-likely secondary to demarginzation from steroids therapy, patient with no fever to indicate infectious process-improving Acute Bronchitis Tachycardia-Likely secondary to respiratory failure GERD Hyperlipidemia Dementia Plan Continue supportive care Wean oxygen as tolerated Leukocytosis improving Taper Steroids to 60 Q12H Then PO in am and possible discharge if continues to improve AM LABS Continue flutter therapy Anticipate discharge in 24hrs. DVT and GI prophylaxis History Interval history: Patient is seen today for: Asthma exacerbation Seen and examined at bedside; 24hour events reviewed; nursing staff ; no adverse overnight events reported to me; Denies any chest pain, nausea, vomiting, gilma rrhea. Patient continues to complain of increased phlegm. somewhat improved No fever noted blood pressure controlled Hospitalist Physical - Physical exam Narrative exam: VITAL SIGNS: Reviewed. GENERAL: The patient appeared well nourished and normally developed. ital signs as documented. HEAD: No signs of head trauma. EYES: Pupils are equal. Extraocular motions intact. EARS: Hearing grossly intact. MOUTH: Oropharynx is normal. NECK: No adenopathy, no JVD. CHEST: Chest with diminished breath sounds bilaterally. No wheezes, rales, or rhonchi. CARDIAC: Regular rate and rhythm. S1 and S2, without murmurs, gallops, or rubs. VASCULAR: No Edema. Peripheral pulses normal and equal in all extremities. ABDOMEN: Soft, without detectable tenderness. No sign of distention. No rebound or guarding, and no masses palpated. Bowel Sounds normal. MUSCULOSKELETAL: Good range of motion of all major joints. Extremities without clubbing, cyanosis or edema. NEUROLOGIC EXAM: Alert and oriented x 3. No focal sensory or strength deficits. Speech normal. Follows commands. PSYCHIATRIC: Mood normal. SKIN: No rash or lesions. - Constitutional Vitals: Temp Pulse Resp BP Pulse Ox 97.8 F 107 H 20 155/92 90 05/03/18 08:05 05/03/18 08:05 05/03/18 08:05 05/03/18 08:05 05/03/18 08:05 Results - Labs CBC & Chem 7: 05/03/18 05:00 05/03/18 05:00 Labs: Laboratory Last Values WBC 17.2 K/mm3 (4.5-11.0) H 05/03/18 05:00 RBC 5.04 M/mm3 (3.65-5.03) H 05/03/18 05:00 Hgb 15.1 gm/dl (11.8-15.2) 05/03/18 05:00 Hct 45.0 % (35.5-45.6) 05/03/18 05:00 MCV 90 fl (84-94) 05/03/18 05:00 MCH 30 pg (28-32) 05/03/18 05:00 MCHC 34 % (32-34) 05/03/18 05:00 RDW 14.2 % (13.2-15.2) 05/03/18 05:00 Plt Count 246 K/mm3 (140-440) 05/03/18 05:00 Lymph % (Auto) 4.1 % (13.4-35.0) L 04/30/18 20:32 [place] % (Auto) 7.9 % (0.0-7.3) H 04/30/18 20:32 Eos % (Auto) 0.8 % (0.0-4.3) 04/30/18 20:32 Baso % (Auto) 1.0 % (0.0-1.8) 04/30/18 20:32 Lymph # 0.6 K/mm3 (1.2-5.4) L 04/30/18 20:32 [place] # 1.1 K/mm3 (0.0-0.8) H 04/30/18 20:32 Eos # 0.1 K/mm3 (0.0-0.4) 04/30/18 20:32 Baso # 0.1 K/mm3 (0.0-0.1) 04/30/18 20:32 Add Manual Diff Complete 05/02/18 02:24 Total Counted 200 05/02/18 02:24 Seg Neutrophils % Dental Laboratory Worker 05/02/18 02:24 Seg Neuts % (Manual) 86.0 % (40.0-70.0) H 05/02/18 02:24 Band Neutrophils % 4.5 % 05/02/18 02:24 Lymphocytes % (Manual) 4.0 % (13.4-35.0) L 05/02/18 02:24 Reactive Lymphs % (Man) 0 % 05/02/18 02:24 Monocytes % (Manual) 5.5 % (0.0-7.3) 05/02/18 02:24 Eosinophils % (Manual) 0 % (0.0-4.3) 05/02/18 02:24 Basophils % (Manual) 0 % (0.0-1.8) 05/02/18 02:24 Metamyelocytes % 0 % 05/02/18 02:24 Myelocytes % 0 % 05/02/18 02:24 Promyelocytes % 0 % 05/02/18 02:24 Blast Cells % 0 % 05/02/18 02:24 Nucleated RBC % Not Reportable 05/02/18 02:24 Seg Neutrophils # 11.7 K/mm3 (1.8-7.7) H 04/30/18 20:32 Seg Neutrophils # Man 18.2 K/mm3 (1.8-7.7) H 05/02/18 02:24 Band Neutrophils # 1.0 K/mm3 05/02/18 02:24 Lymphocytes # (Manual) 0.8 K/mm3 (1.2-5.4) L 05/02/18 02:24 Abs React Lymphs (Man) 0.0 K/mm3 05/02/18 02:24 Monocytes # (Manual) 1.2 K/mm3 (0.0-0.8) H 05/02/18 02:24 Eosinophils # (Manual) 0.0 K/mm3 (0.0-0.4) 05/02/18 02:24 Basophils # (Manual) 0.0 K/mm3 (0.0-0.1) 05/02/18 02:24 Metamyelocytes # 0.0 K/mm3 05/02/18 02:24 Myelocytes # 0.0 K/mm3 05/02/18 02:24 Promyelocytes # 0.0 K/mm3 05/02/18 02:24 Blast Cells # 0.0 K/mm3 05/02/18 02:24 WBC Morphology Not Reportable 05/02/18 02:24 Hypersegmented Neuts Not Reportable 05/02/18 02:24 Hyposegmented Neuts Not Reportable 05/02/18 02:24 Hypogranular Neuts Not Reportable 05/02/18 02:24 Smudge Cells Not Reportable 05/02/18 02:24 Toxic Granulation Not Reportable 05/02/18 02:24 Toxic Vacuolation Not Reportable 05/02/18 02:24 Dohle Bodies Not Reportable 05/02/18 02:24 Pelger-Huet Anomaly Not Reportable 05/02/18 02:24 Bang Rods Not Reportable 05/02/18 02:24 Platelet Estimate Consistent w auto 05/02/18 02:24 Clumped Platelets Not Reportable 05/02/18 02:24 Plt Clumps, EDTA Not Reportable 05/02/18 02:24 Large Platelets Not Reportable 05/02/18 02:24 Giant Platelets Not Reportable 05/02/18 02:24 Platelet Satelliting Not Reportable 05/02/18 02:24 Plt Morphology Comment Not Reportable 05/02/18 02:24 RBC Morphology Normal 05/02/18 02:24 Dimorphic RBCs Not Reportable 05/02/18 02:24 Polychromasia Not Reportable 05/02/18 02:24 Hypochromasia Not Reportable 05/02/18 02:24 Poikilocytosis Not Reportable 05/02/18 02:24 Anisocytosis Not Reportable 05/02/18 02:24 Microcytosis Not Reportable 05/02/18 02:24 Macrocytosis Not Reportable 05/02/18 02:24 Spherocytes Not Reportable 05/02/18 02:24 Pappenheimer Bodies Not Reportable 05/02/18 02:24 Sickle Cells Not Reportable 05/02/18 02:24 Target Cells Not Reportable 05/02/18 02:24 Tear Drop Cells Not Reportable 05/02/18 02:24 Ovalocytes Not Reportable 05/02/18 02:24 Helmet Cells Not Reportable 05/02/18 02:24 Jason-Goddard Bodies Not Reportable 05/02/18 02:24 [place] Rings Not Reportable 05/02/18 02:24 [place] Cells Not Reportable 05/02/18 02:24 Bite Cells Not Reportable 05/02/18 02:24 Crenated Cell Not Reportable 05/02/18 02:24 Elliptocytes Not Reportable 05/02/18 02:24 Acanthocytes (Spur) Not Reportable 05/02/18 02:24 Rouleaux Not Reportable 05/02/18 02:24 Hemoglobin C Crystals Not Reportable 05/02/18 02:24 Schistocytes Not Reportable 05/02/18 02:24 Malaria parasites Not Reportable 05/02/18 02:24 Kenneth Bodies Not Reportable 05/02/18 02:24 Hem Pathologist Commnt No 05/02/18 02:24 Sodium 142 mmol/L (137-145) 05/03/18 05:00 Potassium 4.5 mmol/L (3.6-5.0) 05/03/18 05:00 Chloride 103.8 mmol/L (98-107) 05/03/18 05:00 Carbon Dioxide 25 mmol/L (22-30) 05/03/18 05:00 Anion Gap 18 mmol/L 05/03/18 05:00 BUN 37 mg/dL (9-20) H 05/03/18 05:00 Creatinine 1.3 mg/dL (0.8-1.5) 05/03/18 05:00 Estimated GFR 54 ml/min 05/03/18 05:00 BUN/Creatinine Ratio 28 % 05/03/18 05:00 Glucose 162 mg/dL (75-100) H 05/03/18 05:00 Calcium 9.3 mg/dL (8.4-10.2) 05/03/18 05:00
[2018-05-03] MEDS: LOVENOX SUB-Q SCH (09:19)
[2018-05-03] MEDS: NORVASC PO SCH (09:20)
[2018-05-03] MEDS: SOLU-Medrol IV SCH ×4 (09:20→21:24)
[2018-05-03] MEDS: SODIUM CHLORIDE FLUSH SYRINGE 10 ML IV SCH ×3 (09:20→21:25)
[2018-05-03] MEDS: ULTRAM PO PRN (15:17)
[2018-05-03] MEDS: ZOFRAN IV PRN (15:17)
[2018-05-04] MEDS: DUONEB *Not for PRN Use IH SCH ×4 (02:19→21:39)
[2018-05-04 05:52] LABS: BUN/Creatinine Ratio 37; Blood Urea Nitrogen 33 mg/dL (9-20); Calcium 8.6 mg/dL (8.4-10.2); Hemolysis Index 67
[2018-05-04] MEDS: LOVENOX SUB-Q SCH (09:50)
[2018-05-04] MEDS: SODIUM CHLORIDE FLUSH SYRINGE 10 ML IV SCH ×2 (09:50→21:52)
[2018-05-04] MEDS: NORVASC PO SCH (09:50)
[2018-05-04] MEDS: SOLU-Medrol IV SCH ×2 (09:50→21:51)
[2018-05-04] MEDS ORDERED: ALUM-MAG HYDROX-SIMETH 200-200-20MG/5ML PO PRN (11:45)
--- NOTE | 2018-05-04 14:05 | Progress Note ---
Assessment and Plan Assessment and plan: [age]-year-old man with a history of hypertension, hyperlipidemia, dementia, GERD, CVA was brought to the emergency room by family for evaluation for shortness of breath. He was diagnosed with bronchitis 4 weeks ago, treated with a Z-Wallace his symptoms improved temporarily. He continued to have shortness of breath, cough, no fever or chills * CXR: Mild cardiomegaly No acute pulmonary process. COPD Exacerbation Acute on Chronic Respiratory failure Leukcoytosis-likely secondary to demarginzation from steroids therapy, patient with no fever to indicate infectious process-improving Acute Bronchitis Tachycardia-Likely secondary to respiratory failure GERD Hyperlipidemia Dementia Plan Continue supportive care Wean oxygen as tolerated Leukocytosis improving Taper Steroids to 60 Q12H Then PO in am and possible discharge if continues to improve AM LABS Continue flutter therapy Anticipate discharge in a.m. DVT and GI prophylaxis History Interval history: Patient is seen today for: Asthma exacerbation Seen and examined at bedside; 24hour events reviewed; nursing staff ; no adverse overnight events reported to me; Denies any chest pain, nausea, vomiting, diarr hea. Patient reports improvement in pleghm and now off oxygen will like to ambulate today and possible discharge in am No fever noted blood pressure controlled Hospitalist Physical - Physical exam Narrative exam: VITAL SIGNS: Reviewed. GENERAL: The patient appeared well nourished and normally developed. vital signs as documented. HEAD: No signs of head trauma. EYES: Pupils are equal. Extraocular motions intact. EARS: Hearing grossly intact. MOUTH: Oropharynx is normal. NECK: No adenopathy, no JVD. CHEST: Chest with diminished breath sounds bilaterally. No wheezes, rales, or rhonchi. CARDIAC: Regular rate and rhythm. S1 and S2, without murmurs, gallops, or rubs. VASCULAR: No Edema. Peripheral pulses normal and equal in all extremities. ABDOMEN: Soft, without detectable tenderness. No sign of distention. No rebound or guarding, and no masses palpated. Bowel Sounds normal. MUSCULOSKELETAL: Good range of motion of all major joints. Extremities without clubbing, cyanosis or edema. NEUROLOGIC EXAM: Alert and oriented x 3. No focal sensory or strength deficits. Speech normal. Follows commands. PSYCHIATRIC: Mood normal. SKIN: No rash or lesions. - Constitutional Vitals: Temp Pulse Resp BP Pulse Ox 98.0 F 101 H 20 141/81 94 05/04/18 09:00 05/04/18 10:47 05/04/18 10:47 05/04/18 09:50 05/04/18 10:45 Results - Labs CBC & Chem 7: 05/03/18 05:00 05/04/18 04:42 Labs: Laboratory Last Values WBC 17.2 K/mm3 (4.5-11.0) H 05/03/18 05:00 RBC 5.04 M/mm3 (3.65-5.03) H 05/03/18 05:00 Hgb 15.1 gm/dl (11.8-15.2) 05/03/18 05:00 Hct 45.0 % (35.5-45.6) 05/03/18 05:00 MCV 90 fl (84-94) 05/03/18 05:00 MCH 30 pg (28-32) 05/03/18 05:00 MCHC 34 % (32-34) 05/03/18 05:00 RDW 14.2 % (13.2-15.2) 05/03/18 05:00 Plt Count 246 K/mm3 (140-440) 05/03/18 05:00 Lymph % (Auto) 4.1 % (13.4-35.0) L 04/30/18 20:32 [place] % (Auto) 7.9 % (0.0-7.3) H 04/30/18 20:32 Eos % (Auto) 0.8 % (0.0-4.3) 04/30/18 20:32 Baso % (Auto) 1.0 % (0.0-1.8) 04/30/18 20:32 Lymph # 0.6 K/mm3 (1.2-5.4) L 04/30/18 20:32 [place] # 1.1 K/mm3 (0.0-0.8) H 04/30/18 20:32 Eos # 0.1 K/mm3 (0.0-0.4) 04/30/18 20:32 Baso # 0.1 K/mm3 (0.0-0.1) 04/30/18 20:32 Add Manual Diff Complete 05/02/18 02:24 Total Counted 200 05/02/18 02:24 Seg Neutrophils % Community Outreach Coordinator 05/02/18 02:24 Seg Neuts % (Manual) 86.0 % (40.0-70.0) H 05/02/18 02:24 Band Neutrophils % 4.5 % 05/02/18 02:24 Lymphocytes % (Manual) 4.0 % (13.4-35.0) L 05/02/18 02:24 Reactive Lymphs % (Man) 0 % 05/02/18 02:24 Monocytes % (Manual) 5.5 % (0.0-7.3) 05/02/18 02:24 Eosinophils % (Manual) 0 % (0.0-4.3) 05/02/18 02:24 Basophils % (Manual) 0 % (0.0-1.8) 05/02/18 02:24 Metamyelocytes % 0 % 05/02/18 02:24 Myelocytes % 0 % 05/02/18 02:24 Promyelocytes % 0 % 05/02/18 02:24 Blast Cells % 0 % 05/02/18 02:24 Nucleated RBC % Not Reportable 05/02/18 02:24 Seg Neutrophils # 11.7 K/mm3 (1.8-7.7) H 04/30/18 20:32 Seg Neutrophils # Man 18.2 K/mm3 (1.8-7.7) H 05/02/18 02:24 Band Neutrophils # 1.0 K/mm3 05/02/18 02:24 Lymphocytes # (Manual) 0.8 K/mm3 (1.2-5.4) L 05/02/18 02:24 Abs React Lymphs (Man) 0.0 K/mm3 05/02/18 02:24 Monocytes # (Manual) 1.2 K/mm3 (0.0-0.8) H 05/02/18 02:24 Eosinophils # (Manual) 0.0 K/mm3 (0.0-0.4) 05/02/18 02:24 Basophils # (Manual) 0.0 K/mm3 (0.0-0.1) 05/02/18 02:24 Metamyelocytes # 0.0 K/mm3 05/02/18 02:24 Myelocytes # 0.0 K/mm3 05/02/18 02:24 Promyelocytes # 0.0 K/mm3 05/02/18 02:24 Blast Cells # 0.0 K/mm3 05/02/18 02:24 WBC Morphology Not Reportable 05/02/18 02:24 Hypersegmented Neuts Not Reportable 05/02/18 02:24 Hyposegmented Neuts Not Reportable 05/02/18 02:24 Hypogranular Neuts Not Reportable 05/02/18 02:24 Smudge Cells Not Reportable 05/02/18 02:24 Toxic Granulation Not Reportable 05/02/18 02:24 Toxic Vacuolation Not Reportable 05/02/18 02:24 Dohle Bodies Not Reportable 05/02/18 02:24 Pelger-Huet Anomaly Not Reportable 05/02/18 02:24 Bang Rods Not Reportable 05/02/18 02:24 Platelet Estimate Consistent w auto 05/02/18 02:24 Clumped Platelets Not Reportable 05/02/18 02:24 Plt Clumps, EDTA Not Reportable 05/02/18 02:24 Large Platelets Not Reportable 05/02/18 02:24 Giant Platelets Not Reportable 05/02/18 02:24 Platelet Satelliting Not Reportable 05/02/18 02:24 Plt Morphology Comment Not Reportable 05/02/18 02:24 RBC Morphology Normal 05/02/18 02:24 Dimorphic RBCs Not Reportable 05/02/18 02:24 Polychromasia Not Reportable 05/02/18 02:24 Hypochromasia Not Reportable 05/02/18 02:24 Poikilocytosis Not Reportable 05/02/18 02:24 Anisocytosis Not Reportable 05/02/18 02:24 Microcytosis Not Reportable 05/02/18 02:24 Macrocytosis Not Reportable 05/02/18 02:24 Spherocytes Not Reportable 05/02/18 02:24 Pappenheimer Bodies Not Reportable 05/02/18 02:24 Sickle Cells Not Reportable 05/02/18 02:24 Target Cells Not Reportable 05/02/18 02:24 Tear Drop Cells Not Reportable 05/02/18 02:24 Ovalocytes Not Reportable 05/02/18 02:24 Helmet Cells Not Reportable 05/02/18 02:24 [place] Bodies Not Reportable 05/02/18 02:24 [place] Rings Not Reportable 05/02/18 02:24 [place] Cells Not Reportable 05/02/18 02:24 Bite Cells Not Reportable 05/02/18 02:24 Crenated Cell Not Reportable 05/02/18 02:24 Elliptocytes Not Reportable 05/02/18 02:24 Acanthocytes (Spur) Not Reportable 05/02/18 02:24 Rouleaux Not Reportable 05/02/18 02:24 Hemoglobin C Crystals Not Reportable 05/02/18 02:24 Schistocytes Not Reportable 05/02/18 02:24 Malaria parasites Not Reportable 05/02/18 02:24 Kenneth Bodies Not Reportable 05/02/18 02:24 Hem Pathologist Commnt No 05/02/18 02:24 Sodium 140 mmol/L (137-145) 05/04/18 04:42 Potassium 4.9 mmol/L (3.6-5.0) 05/04/18 04:42 Chloride 103.9 mmol/L (98-107) 05/04/18 04:42 Carbon Dioxide 22 mmol/L (22-30) 05/04/18 04:42 Anion Gap 19 mmol/L 05/04/18 04:42 BUN 33 mg/dL (9-20) H 05/04/18 04:42 Creatinine 0.9 mg/dL (0.8-1.5) 05/04/18 04:42 Estimated GFR > 60 ml/min 05/04/18 04:42 BUN/Creatinine Ratio 37 % 05/04/18 04:42 Glucose 177 mg/dL (75-100) H 05/04/18 04:42 Calcium 8.6 mg/dL (8.4-10.2) 05/04/18 04:42
[2018-05-05] MEDS: DUONEB *Not for PRN Use IH SCH ×4 (04:07→21:03)
[2018-05-05] MEDS: ULTRAM PO PRN ×2 (06:41→13:14)
--- NOTE | 2018-05-05 07:42 | Discharge Summary ---
Providers - Providers Date of Admission: 05/01/18 00:13 Attending physician: ABEL SEAY MD Primary care physician: HAND MITER OPERATOR Hospitalization Reason for admission: shortness of breath Condition: Stable Hospital course: 72-year-old man with a history of hypertension, hyperlipidemia, dementia, GERD, CVA was brought to the emergency room by family for evaluation for shortness of breath. He was diagnosed with bronchitis 4 weeks ago, treated with a Z-Wallace his symptoms improved temporarily. He continued to have shortness of breath, cough, no fever or chills. Patient was treated with steroids and also BP control was started. We also started the patient on PPI and steroids taper on discharge. Leukcytosis was improved and we added Labetalol for better BP control. * CXR: Mild cardiomegaly No acute pulmonary process. Discharge Diagnosis COPD Exacerbation Acute on Chronic Respiratory failure Leukcoytosis-likely secondary to demarginzation from steroids therapy, patient with no fever to indicate infectious process-improving Acute Bronchitis Hypertensive urgency Tachycardia-Likely secondary to respiratory failure GERD-moderate Hyperlipidemia Dementia Disposition: DC/TX- HOME UNDER [facility] Time spent for discharge: 35 mins Core Measure Documentation - Palliative Care Palliative Care/ Comfort Measures: Not Applicable - Core Measures Any of the following diagnoses?: none Exam - Physical Exam Narrative exam: VITAL SIGNS: Reviewed. GENERAL: The patient appeared well nourished and normally developed. vital signs as documented. HEAD: No signs of head trauma. EYES: Pupils are equal. Extraocular motions intact. EARS: Hearing grossly intact. MOUTH: Oropharynx is normal. NECK: No adenopathy, no JVD. CHEST: Chest with diminished breath sounds bilaterally. No wheezes, rales, or rhonchi. CARDIAC: Regular rate and rhythm. S1 and S2, without murmurs, gallops, or rubs. VASCULAR: No Edema. Peripheral pulses normal and equal in all extremities. ABDOMEN: Soft, without detectable tenderness. No sign of distention. No rebound or guarding, and no masses palpated. Bowel Sounds normal. MUSCULOSKELETAL: Good range of motion of all major joints. Extremities without clubbing, cyanosis or edema. NEUROLOGIC EXAM: Alert and oriented x 3. No focal sensory or strength deficits. Speech normal. Follows commands. PSYCHIATRIC: Mood normal. SKIN: No rash or lesions. - Constitutional Vitals: Temp Pulse Resp BP Pulse Ox 98.6 F 108 H 18 179/94 94 05/05/18 01:50 05/05/18 07:13 05/05/18 07:13 05/05/18 01:50 05/05/18 07:13 Plan Activity: advance as tolerated, fall precautions Diet: low fat Special Instructions: record daily weights, record daily BP diary Follow up with: PRIMARY CAREMD [Primary Care Provider] - 7 Days ASAF LI MD [Staff Physician] - 7 Days Prescriptions: ALBUTEROL Inhaler (OR & NICU) [ProAir HFA Inhaler] 2 puff IH QID PRN #1 inhal ation PRN Reason: Shortness Of Breath Antacid [Alum-Mag Hydrox-Simeth [id number]] 30 ml PO Q4H PRN #10 oral.liqd PRN Reason: Indigestion guaiFENesin DM [Guaifenesin Dm Syrup] 10 ml PO Q4H PRN 7 Days oral.liqd PRN Reason: Cough Labetalol [Normodyne TAB] 100 mg PO BID #60 tablet Prednisone [predniSONE 5 mg (6-Day Pack, 21 Tabs)] 5 mg PO .TAPER #1 tab.ds.pk
[2018-05-05] MEDS: NORVASC PO SCH (09:18)
[2018-05-05] MEDS: SOLU-Medrol IV SCH (09:18)
[2018-05-05] MEDS: LOVENOX SUB-Q SCH (09:18)
[2018-05-05] MEDS: SODIUM CHLORIDE FLUSH SYRINGE 10 ML IV SCH (09:19)
[2018-05-05] MEDS ORDERED: APRESOLINE IV PRN (12:36)
[2018-05-05] MEDS ORDERED: NORVASC PO SCH (13:00)
[2018-05-05] MEDS ORDERED: NORMODYNE PO SCH (13:00)
[2018-05-05 14:13] VITALS: BP 127/60
== END 2018-05-05 18:00 | disposition home health service (06) | DRG 189 ==
LOC: ED 19:02 → 2B-ACE 05-01 00:13
PROVIDERS: ADMIT Internal Medicine; ATTEND Internal Medicine
DX: J96.20 Acute and chronic respiratory failure, unspecified whether with hypoxia or hypercapnia (principal); J44.1 Chronic obstructive pulmonary disease with (acute) exacerbation; J44.0 Chronic obstructive pulmonary disease with (acute) lower respiratory infection; J20.9 Acute bronchitis, unspecified; I10 Essential (primary) hypertension; E78.00 Pure hypercholesterolemia, unspecified; I16.0 Hypertensive urgency; E78.5 Hyperlipidemia, unspecified; F03.90 Unspecified dementia, unspecified severity, without behavioral disturbance, psychotic disturbance, mood disturbance, and anxiety; K21.9 Gastro-esophageal reflux disease without esophagitis; Z86.73 Personal history of transient ischemic attack (TIA), and cerebral infarction without residual deficits; Z90.49 Acquired absence of other specified parts of digestive tract; Z82.49 Family history of ischemic heart disease and other diseases of the circulatory system; Z79.82 Long term (current) use of aspirin; Z79.899 Other long term (current) drug therapy; Z79.51 Long term (current) use of inhaled steroids; Z87.891 Personal history of nicotine dependence
CPT/HCPCS: 36415; 71046; 80048; 85007; 85025; 85027; 93005; 93010; 94640; 94760; G0378; A9270-GY; J1650; J2405; J2930; J3475